=== PATIENT | female | born 1980 | race Caucasian/White ===

== ENCOUNTER 2020-11-05 13:37 | Emergency (ER) | payer MEDICAID, SELFPAY ==
--- NOTE | ~2020-11-05 | CT_ITS ---
EXAMINATION: CTA CHEST CT ABDOMEN AND PELVIS WITH CONTRAST CLINICAL INFORMATION: Left lower chest wall pleuritic pain. Left flank pain. COMPARISON: CT pelvis 07/10/2014. MR pelvis 09/29/2014 TECHNIQUE: A noncontrast localizer was performed, followed by the administration of 85 mL Omnipaque [address] of the chest was then performed. Coronal and sagittal reformatted and 3-D technique MIP images of the chest were completed at the CT scanner and reviewed on the PACS workstation. No adverse effects were reported. Images were then performed through the abdomen and pelvis. Coronal and sagittal reformatted images performed at CT scanner by technologist. [This CT examination was performed using dose optimization techniques as appropriate, variously including the following: *Automated exposure control *Adjustment of mA and/or kV according to patient size (this includes techniques or standardized protocols for targeted exams where dose is matched to indication/reason for exam; i.e. extremities or head) *Use of iterative reconstruction technique] DLP: 1083 mGy-cm. FINDINGS: CTA CHEST Vascular: The main pulmonary artery, secondary and tertiary branches of the pulmonary artery are normally opacified with no evidence of pulmonary embolism. The aorta and great vessels are unremarkable. Mediastinum: No mediastinal mass. No significant lymphadenopathy. There is no pericardial effusion. Lungs: The lungs are clear. No nodule or infiltrate. Central bronchial airways open. Fluid: There is no pericardial effusion. There is no pleural effusion. Axilla: No significant lymphadenopathy. CT SCAN ABDOMEN/PELVIS: Liver, Gallbladder and Biliary Tree: The liver is normal in size, shape, and attenuation. No focal hepatic lesion or biliary ductal dilatation is present. The gallbladder is unremarkable with no evidence of radiopaque gallstones, gallbladder wall thickening, or obvious pericholecystic inflammatory changes. Pancreas: Unremarkable. Spleen: Unremarkable. Adrenal Glands: Unremarkable. Kidneys and Ureters: The kidneys are normal in size, shape, and attenuation. No hydronephrosis, hydroureter, or calculi seen. No perinephric stranding. Bladder: Unremarkable. Gastrointestinal Tract: The small and large bowel are unremarkable. The appendix is unremarkable. Abdominal Wall: No significant hernia is appreciated. Lymph Nodes: Normal. Vascular: Unremarkable. Pelvic Viscera: Uterus is anteverted. Rim-enhancing corpus luteum cyst in the right ovary with small volume of fluid in the cul-de-sac and right adnexa. Osseous Structures: Unremarkable. CT/CT angio chest PE protocol IMPRESSION: 1. No evidence of pulmonary embolism. No acute changes of the chest. 2. Normal CT scan abdomen and pelvis.
[2020-11-05 14:27] VITALS: BP 130/75; PULSE 93; RESP 18; TEMP 37.1; O2SAT 99; BMI 33.9
[2020-11-05 16:13] LABS: MANUAL DIFF FLAG NO
[2020-11-05 16:15] LABS: Basophils Percent Auto 0.4 % (0-2); Eosinophils Absolute Auto 0.1 X10*3/uL (0.0-0.4); Eosinophils Percent Auto 1.8 % (0-4); Hemoglobin 14.4 g/dl (12.0-16.0); Imm Gran Abs Auto 0.02 X10*3/uL (0.00-0.03); Imm Gran Pct Auto 0.3 % (0.0-0.4); Lymphocytes Percent Auto 26.8 % (20-40); Mean Corpuscular HGB Conc 32.7 g/dl (31.0-35.0); Mean Corpuscular Hemoglobin 30.2 pg (27.0-33.0); Mean Corpuscular Volume 92.2 fL (80-98); Monocytes Absolute Auto 0.6 X10*3/uL (0.1-1.2); Monocytes Percent Auto 8.2 % (2-11); Neutrophils Absolute Auto 4.6 X10*3/uL (2.0-8.3); Neutrophils Percent Auto 62.5 % (45-73); Platelet Count 260 X10*3/uL (160-400); Red Blood Count 4.77 X10*6/uL (4.20-5.50); Red Cell Distribution Width 12.3 % (11.0-16.0); White Blood Count 7.3 X10*3/uL (4.8-10.8)
[2020-11-05 16:19] LABS: Glucose Urine UA NEG (NEG); Leukocyte Esterase Urine NEG (NEG); Nitrite Urine NEG (NEG); Specific Gravity - Urine >= 1.030 (1.005-1.025); Urine Blood TRACE (NEG); Urine Ketones NEG (NEG); Urine Protein NEG (NEG-TRACE)
[2020-11-05 16:29] LABS: Appearance Urine CLEAR; Color Urine YELLOW
[2020-11-05 16:43] LABS: Anion Gap 13 (12-20); Blood Urea Nitrogen 9 mg/dL (9-16); Calcium 9.4 mg/dL (8.4-10.2); Carbon Dioxide 25 mmol/L (22-29); Chloride 104 mmol/L (96-108); Creatinine Clr Calc Pharmacy 105.8; Estimated Glomerular Filt Rate > 60; Glucose Random 77 mg/dL (60-115); Potassium 4.3 mmol/L (3.3-5.1); Sodium 138 mmol/L (135-145)
[2020-11-05 17:01] LABS: RBC Urine 0-2 /HPF (0); Squamous Epithelial Cell Urine 1+ /LPF; Urine Pregnancy NEGATIVE (NEGATIVE); WBC Urine 0 /HPF (0-4)
[2020-11-05 17:02] LABS: UPreg QC Valid YES
--- NOTE | 2020-11-05 21:01 | ED_ITS ---
HPI - Abdominal Pain General Chief Complaint: Abdominal Pain Stated Complaint: flank pain Time Seen by Provider: 11/05/20 19:59 Source: patient Mode of arrival: ambulatory Limitations: no limitations History of Present Illness HPI narrative: 39-year-old female who presents emergency department for evaluation of left posterior chest pain and left flank pain. The patient states that the pain came on suddenly last night at around 9:00 p.m.. She states the pain is a constant dull throbbing sensation with a severe sharp sensation which is 10/10 whenever she takes a deep breath in or moves. She states she does feel short of breath but denies dyspnea on exertion. Pain does radiate to her left hip but does not radiate down her left leg. She denied frequency, urgency or dysuria. She denied fever or chills. She states she has had a cough which is nonproductive x4 days. 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 Her last test was yesterday. She denied fever, chills, nausea or vomiting. She denied change in her bowel movements. She denied frequency, urgency or dysuria. She states the pain feels similar to the pain that she had when she had pyelonephritis approximately 15 years ago. Related Data Previous Rx's Medication Instructions Recorded metoclopramide HCl [Reglan] 10 mg PO Q6H PRN #14 tab 11/06/20 morphine 15 mg PO Q4-6H PRN #10 tab 11/06/20 Allergies Allergy/AdvReac Type Severity Reaction Status Date / Time cefotetan [CEFOTETAN] Allergy Severe ANAPHYLAXIS Verified 11/05/20 14:27 Review of Systems Review of Systems Yes all other systems are reviewed and are negative Physical Exam Vital Signs: Vital Signs: Last Vital Signs Temp 98.7 F 11/05/20 14:27 Pulse 93 11/05/20 14:27 Resp 18 11/05/20 14:27 BP 130/75 11/05/20 14:27 Pulse Ox 99 11/05/20 14:27 Body Mass Index 33.9 Const: General: cooperative and other (In distress secondary to pain, lying left side down) Orientation/consciousness: oriented to person and oriented to place Limitations: no limitations HENMT: Head: Yes normal to inspection, Yes normocephalic and Yes atraumatic Ears: external ears normal General nose exam: Normal external nose present Face and sinus: Yes normal facial exam Mouth: Normal oral and palatal mucosa present Throat: Yes posterior oropharynx normal Eyes: Periorbital: periorbital findings normal Eyelids: Yes eyelids normal Conjunctivae: conjunctivae normal Sclerae: sclerae normal Corneas: corneas normal Pupils: Equal, round and reactive pupils present Direct Ophthalmoscopy: normal light reflex Neck: Neck: Yes full ROM, Yes no lymphadenopathy, Yes no meningeal signs, Yes trachea midline and Yes supple Chest: Chest palpation & inspection: normal inspection of the chest and normal palpation of entire chest wall Resp: Effort & Inspection: normal respiratory effort and able to speak in complete sentences Auscultation: clear to auscultation bilaterally Cardio: Rate: regular rate Rhythm: regular rhythm Heart sounds: S1 normal heart sound present, S2 normal heart sound present and no murmurs GI: Inspection: Yes normal to inspection Palpation (GI): Soft to palpation, nontender, no guarding, not rigid and No hepatosplenomegaly present : General: Yes CVA tenderness on the left (Moderate to severe) Back/Spine/Pelvis: Back: CVA tenderness Cervical Spine: normal cervical lordosis Thoracic/Lumbar Spine: thoracic and lumbar spine normal to inspection Skin: Lesions: no lesions Rashes: no rashes Wounds: no wounds Neuro: General: oriented to person, oriented to place and no meningeal signs Cranial nerves: Yes CN's II-XII intact bilaterally and Yes Equal, round and reactive pupils present Cognition (Neuro): normal cognition Motor exam (neuro): 5/5 motor strength present throughout Extrem: General: Yes normal to inspection and Yes full ROM Psych: Appearance: well kempt Mental Status: mental status grossly normal Speech and movement: Normal speech and movement present Affect: normal affect Attitude: cooperative Thought process: Normal thought process present Thought content: Normal thought content present Course Course Course Narrative: 39-year-old female who presents emergency department for ev aluation of left posterior chest and left flank pain that came on suddenly last night 9:00 p.m.. The pain is worse with movement and with breathing. Patient has had a nonproductive cough for 4 days and has had 2-COVID test done by her work place. The patient had normal vital signs. Her examination did reveal left CVA tenderness. Laboratory evaluation revealed urinalysis with trace blood but microscopic only revealed 0-2 rbc's per high-powered field. CBC and BMP were negative. I ordered a CT pulmonary angiogram PE protocol and a CT of the abdomen pelvis with IV contrast to rule out PE versus kidney stone is the cause of her pain. [id number]: The patient's pain improved to 5/10. She was ordered to get morphine 4 mg IV. The patient's CT scan of the chest, abdomen pelvis with IV contrast did not reveal a clear etiology for the patient's pain. I did discuss this with the patient. She was advised to take ibuprofen and Tylenol for pain. For pain not relieved by these medications she was prescribed morphine 15 mg every 4 hours as needed for pain. I did discuss the use of morphine with the patient. This is a narcotic medication and can be addicting and I told the patient she was c oncerned about addiction she should not get the prescription filled or she can ask the pharmacist for less pills. She was discharged home with printed instructions. He was given a no not to return to work for 4 days. MDM - Abdominal Pain Lab Data Result diagrams: 11/05/20 16:07 11/05/20 16:07 Labs: Lab Results 11/05/20 11/05/20 11/05/20 Range/Units 16:07 16:07 16:07 WBC 7.3 (4.8-10.8) X10*3/uL RBC 4.77 (4.20-5.50) X10*6/uL Hgb 14.4 (12.0-16.0) g/dl Hct 44.0 (37-47) % MCV 92.2 (80-98) fL MCH 30.2 (27.0-33.0) pg MCHC 32.7 (31.0-35.0) g/dl RDW 12.3 (11.0-16.0) % Plt Count 260 (160-400) X10*3/uL MPV 10.0 (9.4-12.3) fL Immature Gran % (Auto) 0.3 (0.0-0.4) % Neut % (Auto) 62.5 (45-73) % Lymph % (Auto) 26.8 (20-40) % [place] % (Auto) 8.2 (2-11) % Eos % (Auto) 1.8 (0-4) % Baso % (Auto) 0.4 (0-2) % Lymph # (Auto) 2.0 (1.2-4.9) X10*3/uL [place] # (Auto) 0.6 (0.1-1.2) X10*3/uL Eos # (Auto) 0.1 (0.0-0.4) X10*3/uL Baso # (Auto) 0.0 (0.0-0.2) X10*3/uL Abs Immat Gran (auto) 0.02 (0.00-0.03) X10*3/uL Absolute Neuts (auto) 4.6 (2.0-8.3) X10*3/uL Absolute Nucleated RBC 0.000 (0.0-0.012) X10*3/uL Nucleated RBC % (auto) 0.0 (0.0-0.2) /100WBC Sodium 138 (135-145) mmol/L Potassium 4.3 (3.3-5.1) mmol/L Chloride 104 (96-108) mmol/L Carbon Dioxide 25 (22-29) mmol/L Anion Gap 13 (12-20) BUN 9 (9-16) mg/dL Creatinine 0.83 (0.5-1.4) mg/dL Estim Creat Clear Calc 105.8 Estimated GFR > 60 Random Glucose 77 (60-115) mg/dL Calcium 9.4 (8.4-10.2) mg/dL Urine Color Urine Appearance Urine pH (5.0-8.0) Ur Specific [place] (1.005-1.025) Urine Protein (NEG-TRACE) MG/DL Urine Glucose (UA) (NEG) MG/DL Urine Ketones (NEG) MG/DL Urine Blood (NEG) Urine Nitrite (NEG) Ur Leukocyte Esterase (NEG) Urine RBC (0) /HPF Urine WBC (0-4) /HPF Ur Squamous Epith Cells /LPF Urine Bacteria /LPF Urine Test NEGATIVE (NEGATIVE) 11/05/20 Range/Units 16:07 WBC (4.8-10.8) X10*3/uL RBC (4.20-5.50) X10*6/uL Hgb (12.0-16.0) g/dl Hct (37-47) % MCV (80-98) fL MCH (27.0-33.0) pg MCHC (31.0-35.0) g/dl RDW (11.0-16.0) % Plt Count (160-400) X10*3/uL MPV (9.4-12.3) fL Immature Gran % (Auto) (0.0-0.4) % Neut % (Auto) (45-73) % Lymph % (Auto) (20-40) % [place] % (Auto) (2-11) % Eos % (Auto) (0-4) % Baso % (Auto) (0-2) % Lymph # (Auto) (1.2-4.9) X10*3/uL [place] # (Auto) (0.1-1.2) X10*3/uL Eos # (Auto) (0.0-0.4) X10*3/uL Baso # (Auto) (0.0-0.2) X10*3/uL Abs Immat Gran (auto) (0.00-0.03) X10*3/uL Absolute Neuts (auto) (2.0-8.3) X10*3/uL Absolute Nucleated RBC (0.0-0.012) X10*3/uL Nucleated RBC % (auto) (0.0-0.2) /100WBC Sodium (135-145) mmol/L Potassium (3.3-5.1) mmol/L Chloride (96-108) mmol/L Carbon Dioxide (22-29) mmol/L Anion Gap (12-20) BUN (9-16) mg/dL Creatinine (0.5-1.4) mg/dL Estim Creat Clear Calc Estimated GFR Random Glucose (60-115) mg/dL Calcium (8.4-10.2) mg/dL Urine Color YELLOW Urine Appearance CLEAR Urine pH 6.0 (5.0-8.0) Ur Specific [place] >= 1.030 H (1.005-1.025) Urine Protein NEG (NEG-TRACE) MG/DL Urine Glucose (UA) NEG (NEG) MG/DL Urine Ketones NEG (NEG) MG/DL Urine Blood TRACE (NEG) Urine Nitrite NEG (NEG) Ur Leukocyte Esterase NEG (NEG) Urine RBC 0-2 (0) /HPF Urine WBC 0 (0-4) /HPF Ur Squamous Epith Cells 1+ /LPF Urine Bacteria NONE /LPF Urine Test (NEGATIVE) Discharge Plan Discharge Clinical Impression: Acute flank pain Chest pain Qualifiers: Chest pain type: chest pain on breathing Qualified Code(s): R07.1 - Chest pain on breathing Patient Disposition: Home, Self-Care Instructions: Pleurisy (ED), Renal Colic (ED) Additional Instructions: Your blood work was unremarkable. Urinalysis was unremarkable. The CT scan of your chest, abdomen pelvis did not reveal a clear cause for your pain At this time I suspect that your pain may be related to your lungs (pleurisy) or your kidney (renal colic). I want you to take ibuprofen 200 mg pills, 3 pills every 6 hours (3 times a day) for the next 4 days Take Tylenol (acetaminophen) 500 mg pills, 2 pills every 2 hours after you take ibuprofen hours as needed for pain. For pain not relieved by ibuprofen or Tylenol, take morphine 15 mg, 1 pill every 4 hours as needed for pain. Morphine is a narcotic medication and can be addicting. If your concerned about addiction do not get this medication filled or you can ask the pharmacist for less pills than prescribed. Morphine will make you sleepy, do not work or drive while taking this medication. No work for 4 days. Follow-up with your doctor in 2 days. Please return to the emergency department if your symptoms get worse or if you develop any symptoms that are concerning to you. Prescriptions: New metoclopramide HCl [Reglan] 10 mg tablet 10 mg PO Q6H PRN (Reason: nausea and vomiting) Qty: 14 RF: 0 morphine 15 mg tablet 15 mg PO Q4-6H PRN (Reason: pain) Qty: 10 RF: 0 PMFSH Past Medical History [facility] Narrative: Patient has no chronic medical problems, she did have pyelonephritis 15 years ago. She had a bilateral tubal ligation 06/20/2020 with a nonhealing right abdominal laparoscopic incision site. 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 She smokes less than 1/2 pack of cigarettes per day times 26 years. She denies alcohol and drug use. Surgical History (Updated 11/05/20 @ 14:32 by Sheryl Dykes) H/O tubal ligation Social History Social History Advance Directives: No Advance Directives Information Provided: No Patient : No
[2020-11-05] MEDS: 0.9 % Sodium Chloride 1,000 ML 999 ML IV (21:18)
[2020-11-05] MEDS: Ketorolac Tromethamine 30 MG/ML VIAL IVPUSH (21:21)
[2020-11-05] MEDS: iohexoL 350 MG/ML 100 ML INFUS..BTL IV (22:46)
[2020-11-06] MEDS: Morphine Sulfate 4 MG/ML CARTRIDGE IVPUSH (00:20)
== END 2020-11-06 00:41 | disposition home or self-care (01) ==
PROVIDERS: Emergency Provider Emergency Medicine Emergency Medical Services
DX: R07.1 Chest pain on breathing (principal); R10.32 Left lower quadrant pain; R09.1 Pleurisy; Z79.899 Other long term (current) drug therapy
CPT/HCPCS: 36415; 71275; 74177; 80048; 81001; 81025; 85025; 96365; 96374; 96375; 99283; 99284; J1885; J2270; Q9967

== ENCOUNTER 2024-03-05 19:40 | Emergency (ER) | payer SELFPAY ==
--- NOTE | 2024-03-05 20:03 | ED.EXTPRO ---
HPI - Extremity Problem General Chief complaint: Extremity Injury, Lower Stated complaint: right foot pain Time Seen by Provider: 03/05/24 20:25 Source: patient Mode of arrival: ambulatory Limitations: no limitations History of Present Illness HPI Narrative: Patient is a 43-year-old female who presents emergency department for evaluation of right foot pain. Reports that she gets pain to the ball of her foot plantar aspect, feels primarily between the 3rd and 4th toe radiating to the toe. She reports intermittent home for this area previously, initially noted she was sitting for a prolonged period and upon walking and standing she would notice the pain but it soon alleviate ambulation. Yesterday she awoke with severe pain ?it felt like my throat was broken? she took ibuprofen but her pain has not resolved. Mild throbbing pain if she is resting but once she weightbears the pain is severe. Reports a history of similar pain in the past he click to resolve, with ibuprofen. Today this not. Denies any precipitating injury. No rashes lesions or wounds to the foot. No redness. Related Data Previous Rx's ?Medication ?Instructions ?Recorded metoclopramide HCl 10 mg tablet 10 mg PO Q6H PRN nausea and 11/06/20 (Reglan) vomiting #14 tabs morphine 15 mg immediate release 15 mg PO Q4-6H PRN pain #10 tabs 11/06/20 tablet prednisone 20 mg tablet 20 mg PO DAILY #6 tabs 03/05/24 Allergies Allergy/AdvReac Type Severity Reaction Status Date / Time cefotetan [CEFOTETAN] Allergy Severe ANAPHYLAXIS Verified 03/05/24 20:07 Review of Systems Review of Systems: Yes all other systems are reviewed and are negative [facility] Past Medical History Attestation statement: The following information was validated with the patient. Source: old records reviewed Surgical History H/O tubal ligation Social History Social History Advance Directives: No Advance Directives Information Provided: No Do you have a plan to hurt others: No Plan Physical Exam Vital Signs: Vital Signs: Last Vital Signs Temp 97.5 F 03/05/24 20:04 Pulse 83 03/05/24 20:04 Resp 16 03/05/24 20:04 BP 155/94 H 03/05/24 20:04 Pulse Ox 100 03/05/24 20:04 O2 Del Method Room Air 03/05/24 20:04 BMI result Body Mass Index 31.6 Appearance: Alert.?Oriented to person, place and time. No acute distress.?Normal affect. CVS: Heart sounds normal. Normal heart rate and rhythm.? Pulses normal.?? Respiratory: No respiratory distress.? Lung sounds clear to auscultation bilaterally?? Skin: Skin warm and dry.? Normal skin color.? No rashes wounds or lesions Extremities: No lower extremity edema.? No calf ttp. 2+ DP/PT pulse bilaterally. Tenderness upon palpation at the base of the 2nd-3rd digits; MTP along the plantar aspect. No palpable deformity or abnormality, no erythema, no warmth. ? Neuro: Moves all extremities spontaneously. Sensation intact bilaterally. Ambulates with mildly antalgic gait. Medications Administered Discontinued Medications Generic Name Dose Route Start Last Admin Trade Name Freq PRN Reason Stop Dose Admin Prednisone 20 mg 03/05/24 20:25 03/05/24 20:28 Prednisone 20 Mg Tablet PO 03/05/24 20:26 20 mg ONCE ONE Administration Medical Decision Making Medical Decision Making MDM Narrative: Patient is a 43-year-old female presents emergency department for evaluation of atraumatic right foot pain as per HPI. Overall well-appearing, nontoxic, afebrile. No open wounds or lesions. No history of diabetes. No obvious precipitating injury. Likely overall benign condition; tendonitis, Lee neuroma. Discussed conservative treatment including oral corticosteroids as NSAIDs have not been beneficial for her. Discussed options for outpatient follow-up Differential Diagnosis Differential Diagnoses: The differential diagnosis associated with the presentation includes (Gregg's neuroma, tendonitis, neuropathy. No precipitating injury, obvious deformity, unlikely to have acute fracture dislocate. XR imaging was deferred for this reason) External Record Review External record reviewed: Outpatient record Tests considered The following testing was considered but not selected: XR deferred see narrative above Prescription Management I considered prescription management with: Pain Medication Rx oral corticosteroid; prednisone. Ibuprofen previously not wear Discharge Plan Discharge Clinical Impression: Acute pain of right foot Patient Disposition: Home, Self-Care Instructions: R.I.C.E. Treatment (ED) Additional Instructions: As discussed, the symptoms that you are describing as concerning for a condition known as Gregg's neuroma, nerve related pain, or tendonitis. Ultimately these conditions are treated quite similarly. As discussed, it may be helpful to consider purchasing a shoe insert to help alleviate the pressure from this area of the foot. Be certain that you are wearing supportive footwear. Avoid walking barefoot. A prescription for oral steroids have been sent to your pharmacy, please take this with food to prevent stomach upset, do not take additional [id number] NSAIDs; ibuprofen/Advil/Motrin, Aleve/naproxen, or aspirin while taking this medication. Follow-up with the doctor. Prescriptions: New prednisone 20 mg tablet 20 mg PO DAILY Qty: 6 0RF No Action metoclopramide HCl [Reglan] 10 mg tablet 10 mg PO Q6H PRN (Reason: nausea and vomiting) Qty: 14 0RF morphine 15 mg tablet 15 mg PO Q4-6H PRN (Reason: pain) Qty: 10 0RF Rx Instructions: The patient may ask for partial fill Referrals: Physician,None [Primary Care Provider] - Stand Alone Forms: Work/School Release Discharge Date/Time: 03/05/24 20:40 Print Language: Urdu
[2024-03-05 20:04] VITALS: BP 155/94; PULSE 83; RESP 16; TEMP 36.4; O2SAT 100; BMI 31.6
[2024-03-05] MEDS: predniSONE 20 MG TABLET PO (20:28)
[2024-03-05 20:39] VITALS: BP 155/94; PULSE 83; RESP 16; TEMP 36.4; O2SAT 100
== END 2024-03-05 20:40 | disposition home or self-care (01) ==
PROVIDERS: Emergency Provider Emergency Medicine Emergency Medical Services
DX: M79.671 Pain in right foot (principal)
CPT/HCPCS: 99282; 99283

== ENCOUNTER 2025-06-10 07:19 | Emergency (ER) | payer SELFPAY ==
[2025-06-10 07:22] VITALS: BP 162/81; PULSE 90; RESP 18; TEMP 36.7; O2SAT 100; BMI 34.9
[2025-06-10 07:34] VITALS: BP 151/92; PULSE 84; RESP 16; TEMP 36.8; O2SAT 97
--- NOTE | 2025-06-10 07:44 | PC.NURSE ---
Patient presents to Ed c/o skin abscesses under right arm pit Patient attempted to incise largest abscess, with some relief but feels like other abscesses are growing larger afebrile patient hypertensive 150/80 All other VSS and up to date Patient reports son had recent MRSA infection and believes she might have it as well Provider in to see patient Plan of care on going
--- NOTE | 2025-06-10 08:53 | ED.SKABFB ---
HPI - Skin/Abscess/Foreign Bdy General Chief complaint: Skin/Abscess/Foreign Body Stated complaint: multiple abscess in armpit Time Seen by Provider: 06/10/25 08:53 History of Present Illness ED Provider: Jeison CEDENO narrative: The patient is a 44-year-old woman with no known significant past medical history who was on no medications who has had sores developing in the skin of her right axilla over the last several days. This is very similar to a problem that her son had with the in the last few weeks. Her son was found to have a MRSA infection. The patient has been applying warm compresses. She has had some drainage from the largest lesion. She feels that she has several smaller lesions. No fever, sweats, chills. The patient does not currently have a primary care doctor. This is in part because she does not have any health insurance. She has recently been and this has complicated her insurance coverage. Related Data Previous Rx's ?Medication ?Instructions ?Recorded metoclopramide HCl 10 mg tablet 10 mg PO Q6H PRN nausea and 11/06/20 (Reglan) vomiting #14 tabs morphine 15 mg immediate release 15 mg PO Q4-6H PRN pain #10 tabs 11/06/20 tablet prednisone 20 mg tablet 20 mg PO DAILY #6 tabs 03/05/24 sulfamethoxazole 800 1 tab PO BID #16 tabs 06/10/25 mg-trimethoprim 160 mg tablet Allergies Allergy/AdvReac Type Severity Reaction Status Date / Time cefotetan (CEFOTETAN) Allergy Severe ANAPHYLAXIS Verified 06/10/25 07:24 Review of Systems Review of Systems: Yes all other systems are reviewed and are negative [facility] Past Medical History Surgical History H/O tubal ligation Social History Social History Smoked in Last 30 Days: Yes Use of substances other than those prescribed or required for medical reasons: No Advance Directives: No Advance Directives Information Provided: Yes Do you have a plan to hurt others: No Plan Patient : No Physical Exam Vital Signs: Vital Signs: Last Vital Signs Temp 98.2 F 06/10/25 10:22 Pulse 76 06/10/25 10:22 Resp 16 06/10/25 10:22 BP 128/86 06/10/25 10:22 Pulse Ox 97 12/20/25 10:22 O2 Del Method Room Air 06/10/25 10:22 BMI result Body Mass Index 34.9 Const: Other: The patient is awake and alert in no apparent distress. Orientation/consciousness: patient oriented x3 HEENT: Other: The face is symmetrical. Mucous membranes moist. Eyes: General: appearance normal, both eyes and all related structures Neck: Neck: Yes normal visual inspection and Yes full ROM Resp: Effort & Inspection: normal respiratory effort Auscultation: clear to auscultation bilaterally Cardio: Rate: regular rate Rhythm: regular rhythm Heart sounds: S1 normal heart sound present and S2 normal heart sound present Skin: Other: The patient has a few lesions to the skin of the right axilla. These have the appearance of furuncles. One of which seemed to be slightly draining. The others were quite small. There were no fluctuant masses. Neuro: General: patient oriented x3, gait normal, tone normal, moves all extremities, no focal motor deficits and CN's II-XI intact bilaterally Extrem: Other: The patient has some superficial furuncles to the skin of the right axilla. She is moving the right shoulder normally. Medical Decision Making Medical Decision Making MDM Narrative: The patient is a 44-year-old woman who has a soft tissue skin infection in the skin of the right axilla. The patient is concerned because 2 people in her home have had MRSA infections recently. The patient is additionally concerned that she does not think she has any active health insurance currently and does not wish to have anything that would increase the bill associated with this visit. Therefore, although there is a small amount of purulent drainage apparent at the major lesion (which is not very large and which does not require any incision or drainage or needle aspiration ) I will not send a culture. I will make a presumptive diagnosis of an MRSA soft tissue skin infection and treat the patient with sulfamethoxazole-trimethoprim 1 DS tablet b.i.d. x7 days. Discharge Plan Discharge Clinical Impression: Cutaneous abscess of right axilla Patient Disposition: Home, Self-Care Instructions: Abscess (ED) Additional Instructions: I think it is very likely that the infection in your right armpit is related to MRSA. Please continue to use warm compresses as you has been doing. Additionally I have sent a prescription for the antibiotic sulfamethoxazole-trimethoprim, also known as Bactrim. Please take this 2 times a day until done. Please return to the emergency room if significantly worse. Prescriptions: New sulfamethoxazole-trimethoprim 800-160 mg tablet 1 tab PO BID Qty: 16 0RF No Action metoclopramide HCl [Reglan] 10 mg tablet 10 mg PO Q6H PRN (Reason: nausea and vomiting) Qty: 14 0RF morphine 15 mg tablet 15 mg PO Q4-6H PRN (Reason: pain) Qty: 10 0RF Rx Instructions: The patient may ask for partial fill prednisone 20 mg tablet 20 mg PO DAILY Qty: 6 0RF Interventions: ED Discharge Assessment Last Done: 06/10/25 10:22 Discharge Date/Time: 06/10/25 10:28 Print Language: Argentine
[2025-06-10 10:22] VITALS: BP 128/86; PULSE 76; RESP 16; TEMP 36.8; O2SAT 97
== END 2025-06-10 10:28 | disposition home or self-care (01) ==
PROVIDERS: Emergency Provider Emergency Medicine
DX: L02.411 Cutaneous abscess of right axilla (principal)
CPT/HCPCS: 99283; 99284